=== PATIENT | female | born 1960 | race Caucasian/White ===

== ENCOUNTER 2017-03-31 11:01 | Emergency (ER) | payer OTHER ==
[2017-03-31] MEDS ORDERED: ACETAMINOPHEN 325 MG TABLET PO ONE (11:42)
--- OUTSIDE RECORDS SUMMARY | 2017-03-31 11:42 | XMS REPORT | Continuity of Care Document ---
:1960 Author Organization [facility] ([facility]) Address [address] [place] [address] Phone [phone] Care Team Providers Name Role Phone Claudia Benjamin Primary Care Provider [phone] Source Comments This disclosure is being made pursuant to the Care Everywhere program, applicable federal and state laws, and may not contain all informaitonavailable regarding this patient.[facility] ([facility]) Active Allergies and Adverse Reactions No Known Allergies Current Medications Prescription Sig. Disp. Refills Start Date End Date Status gabapentin 300 mg tablet Take 900 mg by Active mouth 3 times daily. CALCIUM CARBONATE/VITAMIN Take 1 Tab by mouth Active D3 (CALCIUM 600 + D,3, daily. PO) multivitamin tablet Take 1 Tab by mouth Active daily. metFORMIN 1,000 mg tablet Take 1,000 mg by Active mouth 2 times daily with meals. meloxicam 15 mg tablet Take 15 mg by mouth Active daily. lisinopril 20 mg tablet Take 20 mg by mouth Active daily. pioglitazone 15 mg tablet Take 15 mg by mouth Active daily. escitalopram (LEXAPRO) 20 Take 20 mg by mouth Active mg tablet daily. solifenacin (VESICARE) 5 Take 5 mg by mouth Active mg tablet daily. levothyroxine 50 mcg Take 50 mcg by Active tablet mouth every morning before breakfast. atorvastatin 20 mg tablet Take 20 mg by mouth Active every evening. Ferrous Sulfate 324 mg Take 1 Tab by mouth Active (65 mg iron) TbEC 2 times daily. 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 Osteoarthrosis, unspecified whether generalized or localized, unspecified site Immunizations Name Dates Previously Given Next Due Hepatitis B, unspecified 04/01/1999 Influenza, unspecified 01/25/2013 Td, adult unspecified 04/01/1999 Social History Tobacco Use Types Packs/Day Years Used Date Former Smoker Cigarettes 1 Quit: 02/03/1998 Last Filed Vital Signs Vital Sign Reading Time Taken Blood Pressure 118/67 03/06/2013 9:13 AM CDT Pulse 81 03/06/2013 9:13 AM CDT Temperature 36.4 C (97.5 F) 03/06/2013 9:13 AM CDT Respiratory Rate 18 03/12/2006 10:22 AM CDT Height 1.66 m (5' 5.35") 03/06/2013 9:13 AM CDT Weight 110 kg (242 lb 8.1 oz) 03/06/2013 9:13 AM CDT Body Mass Index 39.92 03/06/2013 9:13 AM CDT Oxygen Saturation - - Plan of Care Health Maintenance Due Date Last Done Comments HCV Screening 1960 Tdap Vaccine 1972 MMR Vaccine 1979 Pneumococcal Vaccine (1 of 1 1980 - PPSV23) Hepatitis B Vaccine (2 of 3 04/29/1999 04/01/1999 - Primary Series) Mammogram 08/28/2003 08/28/2002, Additional history exists 07/19/2002, 10/13/1999 Cervical Cancer Screening 12/12/2006 12/12/2003, Additional history exists 06/28/2002, 11/25/2000 Lipid Disorder Screening 07/19/2007 07/19/2002 Td Vaccine 04/01/2009 04/01/1999 Colonoscopy 2011 Influenza Vaccine: Seasonal 06/15/2016 01/25/2013 (#1) Results from Last 3 Months Not on file
[2017-03-31 12:05] LABS: Hematocrit 34.2 % (37.0-47.0); Mean Cell Volume 90.5 fl (78-100); Mean Corpuscular Hemoglobin 29.1 pg (27-31); Mean Corpuscular Hgb Conc 32.2 g/dl (32-36); Neutrophil # 3.2 K/mm3 (1.3-6.0); Neutrophil % 67.3 % (42-75.0); Platelet Count 148 K/mm3 (150-450); Red Blood Count 3.78 M/mm3 (4.2-5.4); Red Cell Distribution Width 13.7 % (11.5-14.0); White Blood Count 4.7 K/mm3 (4.0-10.5)
[2017-03-31] MEDS ORDERED: ACETAMINOPHEN 325 MG TABLET ONE ×2 (12:12→12:14)
[2017-03-31 12:21] LABS: Albumin * 3.5 gm/dl (3.4-5.0); Anion Gap 12.2 mmol/L (6.8-13.8); BUN/Creatinine Ratio 18.1 (9.0-21.6); Bilirubin, Total 0.2 mg/dL (0.0-1.1); Ca. Corrected For Albumin 9.6 mg/dL (8.4-10.2); Calcium * 9.5 mg/dL (7.9-10.9); Carbon Dioxide 29.9 mmol/L (24-32.6); Potassium 4.1 mmol/L (3.4-4.6); Total Protein 7.2 gm/dL (6.2-8.2)
--- NOTE | 2017-03-31 13:18 | ERNOTE ---
Dizziness ER Record Date of Service: 03/31/17 Presenting Symptoms: dizziness Time Seen by Provider: 03/31/17 11:34 Source: patient Exam Limitations: no limitations Immunizations: IMMUNIZATION HX Immunizations Up to Date Yes History of Influenza Vaccine Yes Hx Pneumococcal Vaccination No Allergies/Adverse Reactions: Allergies Allergy/AdvReac Type Severity Reaction Status Date / Time No Known Allergies Allergy Verified 03/31/17 11:14 Home Medications: HOME MEDICATIONS Albuterol Sulfate [Ventolin Hfa] 2 inh IH Q6H 01/26/13 [Last Taken Unknown] Atorvastatin Calcium [Lipitor] 20 mg PO DAILY 01/26/13 [Last Taken Unknown] Budesonide/Formoterol Fumarate [Symbicort 160-4.5 Mcg Inhaler] 2 inh IH BID [Last Taken Unknown] Calcium/Soyb Xt/Flax/B.cohosh [Black Fpxwvh-Fyrwldvy-Flu Cplt] 1 each PO TID [Last Taken Unknown] Cimetidine 400 mg PO HS 01/26/13 [Last Taken Unknown] Cranberry Fruit Concentrate [Cranberry] 500 mg PO DAILY 01/26/13 [Last Taken Unknown] Cyclobenzaprine HCl [Flexeril] 10 mg PO TID 01/26/13 [Last Taken Unknown] Escitalopram Oxalate [Lexapro] 20 mg PO DAILY 01/26/13 [Last Taken Unknown] Ferrous Fumarate [Iron] 65 mg PO DAILY 01/26/13 [Last Taken Unknown] Gabapentin [Neurontin] 600 mg PO TID 01/26/13 [Last Taken Unknown] Levothyroxine Sodium [Synthroid] 50 mcg PO DAILY 01/26/13 [Last Taken Unknown] Lisinopril [Zestril] 20 mg PO DAILY 01/26/13 [Last Taken Unknown] Multivit,Calc,Mins/Iron/Folic [Women's Daily Caplet] 1 each PO DAILY 01/26/13 [ Last Taken Unknown] Multivits Min/Iron/FA/Herb#186 [Hair, Skin and Nails Caplet] 1 each PO TID 01/26 [Last Taken Unknown] Pioglitazone HCl [Actos] 15 mg PO DAILY 01/26/13 [Last Taken Unknown] Solifenacin Succinate [Vesicare] 5 mg PO DAILY 01/26/13 [Last Taken Unknown] metFORMIN HCL [Metformin HCl ER] 1,000 mg PO BID 01/26/13 [Last Taken Unknown] traZODone HCL [Desyrel] 150 mg PO HS 01/26/13 [Last Taken Unknown] Albuterol Sulfate 2.5 mg IH QID PRN 08/27/15 [Last Taken Unknown] Ibuprofen [Motrin] 400 mg PO TID PRN #30 tablet 10/17/16 [Last Taken Unknown] - History of Present Illness Narrative: patient states that she was dizzy yesterday and today. denies any LOC Date (Duration): 03/31/17 Timing and Duration: gradual onset Noted on awakening:: No Severity: max: mild Severity: currently: mild Associated Symptoms: Present: light headedness. Absent: hearing loss, ringing/ roaring in ear, ear pain, nausea, vomiting, headache, weakness, numbness, sweating, sense of confusion Sense of movement: Present: vague Fainted/near fainted while:: Present: standing Decreased ability to stand/walk:: Present: walks w/o assistance Usually:: Present: walks w/o assistance Modifying Factors - (Improves): Reports: nothing Modifying Factors - (Worsens): Reports: nothing Review of Systems - Review of Systems Constitutional: Present: See HPI EYE: Present: no symptoms reported ENT: Present: no symptoms reported Respiratory: Present: no symptoms reported Cardiology: Present: no symptoms reported Gastrointestinal/Abdominal: Present: no symptoms reported Genitourinary: Present: no symptoms reported Musculoskeletal: Present: no symptoms reported Skin: Present: no symptoms reported Neurological: Present: See HPI Endocrine: Present: no symptoms reported Hematologic/Lymphatic: Present: no symptoms reported Psych: Present: no symptoms reported All Other Systems: All systems neg except as marked - Patient's Past Medical History Patient History - Medical: Diabetes Type 2, Hypothyroidism, Osteoarthritis Patient History - Cardiac/Respiratory: Asthma, Bronchitis Patient History - Cancer: No Hx of Cancer Patient History - Surgical Procedures: Cholecystectomy, Hysterectomy Patient History - Other: None LMP (females 10-50): hysterectomy - Family History Father Family History - Medical: Mother Family History - Medical: , Diabetes Type 2 - Social History Living Situations: home Psych History: Hx of Anxiety, Hx of Depression Smoking Status: Former smoker Alcohol Use: none Drug Use: none - Immunizations Immunizations Up to Date: Yes Hx Pneumococcal Vaccination: No History of Influenza Vaccine: Yes Physical Exam - Physical Exam Narrative: fluid behind TM, boggy nasal turbines. Bilateral lower lobes auscultated and decreased breath sounds heard. Patient denied SOB General Appearance: Present: wd/wn, alert, no apparent distress Eye Exam: Normal inspection: bilateral Ears, Nose, Throat: Present: normal ENT inspection, abnormal TM (R), abnormal TM (L), normal pharynx. Absent: nasal congestion, sinus pain/drainage Neck: Present: normal inspection, nontender, full range of motion, limited range of motion. Absent: lymphadenopathy (R), lymphadenopathy (L) Respiratory: Present: no respiratory distress, normal breath sounds, no accessory muscle use, chest nontender, decreased breath sounds - BLL Cardiovascular/Chest: Present: regular rate, rhythm, no murmur, normal peripheral pulses Peripheral Pulses: N=norm/S=strong/W=weak/B=bound/A=absent: Radial (R): Normal, Radial (L): Normal, Dorsalis-pedis (R): Normal, Dorsalis-pedis (L): Normal Gastrointestinal/Abdominal: Present: normal bowel sounds, nontender, soft Back Exam: Present: normal inspection, normal range of motion Extremity Exam: Present: normal inspection, normal range of motion, extremity edema - trace BLE Neurological Exam: Present: alert, oriented, normal mood/affect, no motor/ sensory deficits Skin Exam: Present: normal color, warm/dry Lymphatic Exam: Present: no adenopathy ED Progress - Results and Orders Patient's Lab Results:: I have reviewed the patient's lab results. Results and Orders: patient tested positive for opiates and does not have a prescription. patient states she takes her husbands. - Vital Signs Patient's Vital Signs:: I have reviewed the patient's vital signs. Vital Signs: Vital Signs 03/31/17 03/31/17 03/31/17 11:06 12:07 12:45 Temperature 37.5 C Pulse Rate 65 69 62 Respiratory 14 16 Rate Blood Pressure 123/84 128/76 O2 Sat by Pulse 99 95 Oximetry - EKG EKG: NSR EKG read: Reviewed by me EKG Comments: interp by ED Attending - X-Ray X-Ray #1 X-Ray: chest Interpretation: Reviewed by me X-ray Comments: COMPARISONS: None Available FINDINGS: Chest PA Lateral * Hyperinflated lung volumes. No consolidation or mass. Central bronchial wall prominence noted. No pneumothorax or pleural fluid collections. Cardiac size within normal limits. Atherosclerotic vascular calcification seen projecting over the aorta. Trachea is in normal position. Bones show degenerative changes of the spine. IMPRESSION: Findings compatible with acute or chronic bronchitis versus reactive airways disease. Also consider COPD/emphysema, if the patient has history of smoking. Electronically signed by Leah Drew M.D.. - CT/Ultrasound CT/Ultrasound Narrative: FINDINGS: CT Head W/O Contrast *: Age-related cortical atrophy and periventricular white matter chronic ischemic changes are present. Intracranial atherosclerotic calcifications noted. No acute intracranial hemorrhage. No midline shift or herniation. Wilkins and white matter differentiation is grossly intact. No obvious soft tissue swelling or scalp hematoma noted. Skull grossly intact, without signs of depressed skull fracture. Visualized portions of the paranasal sinuses are clear. Mastoid air cells are grossly clear. IMPRESSION: No acute intracranial hemorrhage or mass effect. Electronically signed by Leah Drew M.D.. - Progress/Reassessment Chief Complaint: Dizziness Progress:: Improved Plan - Plan Plan: Patient has a history of asthma and is an environmental where her continues to smoke around her. Patient has a cough that is nonproductive and states she has not been using her inhalers and breathing treatments at home. She was encouraged to ask her to smoke outside and for her to not be around secondhand smoke. Patient was also urged to take her inhalers and treatments as needed. Patient stated she was taking her 's narcotics for the last few days and has noticed she has been more dizzy. Patient informed of her blood pressure fluctuation from lying sitting and standing that it could be related to taking medications she is not prescribed. This provider did speak with her provider and informed him of her positive drug screen. During my initial examination patient states the reason she was here was because she was dizzy over the last few days. Upon reassessing the patient patient had a second story about why she was here and had no symptoms. Patient then told radiology department that she had chest pain with left arm radiation, when this was brought to the emergency room provider's attention I again reassessed the patient and she denies chest pain or any left arm involvement. Patient then stated that she has been dizzy for years reason she was here now was because her psychiatric doctor told her she needed to come here for evaluation and an echocardiogram. After speaking with her psychiatric doctor's nurse, they informed me that the patient told them that she had 6 syncopal episodes at home yesterday and she had a cardiac history and that's why she was not feeling well and they instructed her to come to the emergency room. Patient states that she did not tell her psychiatrist this and then again changed her story as to why she is here. States the reason she is here is because she wants an echocardiogram because her mother has a history of heart disease. the only positive sign on patients exam was small air fluid level in both TM and boggy nasal turbines, clear nasal drainage. patient was treated for seasonal allergies. During patients stay she developed a limp while walking to and from the bathroom. patient stated that her ankle hurt but it was better now. Departure Clinical Impression: Seasonal allergies Qualifiers: Allergic rhinitis trigger: unspecified Qualified Code(s): J30.2 - Other seasonal allergic rhinitis - Departure Disposition: Home Follow Up Needed Condition: Stable Instructions: Allergies, Tfwg-hn-Czgi Additional Instructions: Continue any previous home medications as directed. you may take over-the- counter Flonase to help with her allergies. Return to the emergency room if symptoms become worse and they're unable to be controlled with her medications at home. Continue with her follow-up appointments with your physicians. Avoid taking medications that are not yours. Referrals: Claudia Benjamin MD [Primary Care Provider] -
[2017-03-31 13:36] LABS: Urine Bilirubin Negative (NEGATIVE); Urine Blood Negative /ul (NEGATIVE); Urine Ketone Negative (NEGATIVE); Urine Nitrite Negative (NEGATIVE); Urine Protein Negative (NEGATIVE); Urine Urobilinogen Normal (NORMAL); Urine pH 7.5 pH (5.0-7.0)
[2017-03-31 13:36] LABS: BNP * 146 pg/mL (5-205); Troponin I Less than 0.017 ng/ml (0.00-0.10)
[2017-03-31 13:42] LABS: Urine Appearance Clear; Urine Bacteria None Seen; Urine Color Yellow; Urine RBC None Seen /hpf (0-5); Urine WBC None Seen /hpf (0-5)
[2017-03-31 13:52] LABS: Cocaine Ur Negative (NEGATIVE); Urine Barbiturate Negative (NEGATIVE); Urine Benzodiazepines Negative (NEGATIVE); Urine PCP Negative (NEGATIVE); Urine THC Negative (NEGATIVE)
[2017-03-31 13:56] LABS: Urine Opiates Positive (NEGATIVE)
[2017-03-31 14:27] VITALS: BP 123/78
== END 2017-03-31 14:48 | disposition home or self-care (01) ==
LOC: ER 11:01
DX: J30.2 Other seasonal allergic rhinitis (principal); E11.9 Type 2 diabetes mellitus without complications; E03.9 Hypothyroidism, unspecified; F41.9 Anxiety disorder, unspecified; F32.9 Major depressive disorder, single episode, unspecified; J45.909 Unspecified asthma, uncomplicated; Z87.891 Personal history of nicotine dependence

== ENCOUNTER 2017-04-04 16:50 | Observation (INO) | payer OTHER ==
--- OUTSIDE RECORDS SUMMARY | 2017-04-04 17:43 | XMS REPORT | Continuity of Care Document ---
:1960 Author Organization [facility] ([facility]) Address [address] [place] [address] Phone [phone] Care Team Providers Name Role Phone Claudia Benjamin Primary Care Provider [phone] Source Comments This disclosure is being made pursuant to the Care Everywhere program, applicable federal and state laws, and may not contain all informaitonavailable regarding this patient.[facility] ([facility]) Active Allergies and Adverse Reactions [...]
--- NOTE | 2017-04-04 17:56 | ERNOTE ---
Psychological HPI - General Chief Complaint: Drug Overdose Source: Reports: family Exam Limitations: Reports: physical impairment - Immun/Allergies/Home Medications Allergies/Adverse Reactions: Allergies No Known Allergies Allergy (Verified 04/04/17 17:00) Home Medications: HOME MEDICATIONS Albuterol Sulfate [Ventolin Hfa] 2 inh IH Q6H 01/26/13 [Last Taken Unknown] Atorvastatin Calcium [Lipitor] 20 mg PO DAILY 01/26/13 [Last Taken Unknown] Budesonide/Formoterol Fumarate [Symbicort 160-4.5 Mcg Inhaler] 2 inh IH BID [Last Taken Unknown] Calcium/Soyb Xt/Flax/B.cohosh [Black Fvysca-Yfxeafbt-Yco Cplt] 1 each PO TID [Last Taken Unknown] Cimetidine 400 mg PO HS 01/26/13 [Last Taken Unknown] Cranberry Fruit Concentrate [Cranberry] 500 mg PO DAILY 01/26/13 [Last Taken Unknown] Cyclobenzaprine HCl [Flexeril] 10 mg PO TID 01/26/13 [Last Taken Unknown] Escitalopram Oxalate [Lexapro] 20 mg PO DAILY 01/26/13 [Last Taken Unknown] Ferrous Fumarate [Iron] 65 mg PO DAILY 01/26/13 [Last Taken Unknown] Gabapentin [Neurontin] 600 mg PO TID 01/26/13 [Last Taken Unknown] Levothyroxine Sodium [Synthroid] 50 mcg PO DAILY 01/26/13 [Last Taken Unknown] Lisinopril [Zestril] 20 mg PO DAILY 01/26/13 [Last Taken Unknown] Multivit,Calc,Mins/Iron/Folic [Women's Daily Caplet] 1 each PO DAILY 01/26/13 [ Last Taken Unknown] Multivits Min/Iron/FA/Herb#186 [Hair, Skin and Nails Caplet] 1 each PO TID 01/26 [Last Taken Unknown] Pioglitazone HCl [Actos] 15 mg PO DAILY 01/26/13 [Last Taken Unknown] Solifenacin Succinate [Vesicare] 5 mg PO DAILY 01/26/13 [Last Taken Unknown] metFORMIN HCL [Metformin HCl ER] 1,000 mg PO BID 01/26/13 [Last Taken Unknown] traZODone HCL [Desyrel] 150 mg PO HS 01/26/13 [Last Taken Unknown] Albuterol Sulfate 2.5 mg IH QID PRN 08/27/15 [Last Taken Unknown] Ibuprofen [Motrin] 400 mg PO TID PRN #30 tablet 10/17/16 [Last Taken Unknown] - History of Present Illness Narrative: Patient is here for a possible over dose. She refuses information, mumbles an answer to some questions and does not respond to others. Her states that he had 20 vicodin in his medication bottle when he left and when he cam back they were gone, he was only gone about an hour, when he came back his was very sleepy and hard to wake up, so he called the ambulance for transport. Patient was admitted for a drug overdose in 10/2016, which was the first event Time Seen by Provider: 04/04/17 17:34 Arrived by: Reports: ambulance Review of Systems - Narrative Narrative: unable to obtain - Patient's Past Medical History Patient History - Medical: Anxiety, Diabetes Type 2, Depression, Hypothyroidism , Osteoarthritis Patient History - Cardiac/Respiratory: Asthma, Bronchitis Patient History - Cancer: No Hx of Cancer Patient History - Surgical Procedures: Cholecystectomy, Hysterectomy Patient History - Other: None - Family History Father Family History - Medical: Mother Family History - Medical: , Diabetes Type 2 - Social History Living Situations: home Psych History: Hx of Anxiety, Hx of Depression Alcohol Use: none Drug Use: none - Immunizations Immunizations Up to Date: Yes Hx Pneumococcal Vaccination: No History of Influenza Vaccine: Yes Physical Exam - Physical Exam General Appearance: Present: wd/wn, no apparent distress, lethargic, obese, other - patient lethargic, only answering select questions, when asked to tranfer from cot to bed though patient is able to get up with minimal assistance , get into bed and push herself up, then becomes lethargic again Eye Exam: Normal inspection: bilateral, PERRL: bilateral Ears, Nose, Throat: Present: normal pharynx, dry mucous membranes Neck: Present: nontender, supple Respiratory: Present: no respiratory distress, normal breath sounds, no accessory muscle use, lungs clear Cardiovascular/Chest: Present: regular rate, rhythm, no murmur Gastrointestinal/Abdominal: Present: normal bowel sounds, nontender, nondistended, soft Neurological Exam: Present: other - transfers with minimal help, uses all extremities, no obvious deficit Skin Exam: Present: normal color, warm/dry ED Progress - Results and Orders Patient's Lab Results:: I have reviewed the patient's lab results. - Vital Signs Patient's Vital Signs:: I have reviewed the patient's vital signs. Vital Signs: Vital Signs 04/04/17 04/04/17 16:55 17:13 Temperature 37.5 C Pulse Rate 78 78 Respiratory 13 Rate Blood Pressure 127/99 O2 Sat by Pulse 94 Oximetry - EKG EKG: NSR, other - no acute changes EKG read: Interp. by me - Progress/Reassessment Chief Complaint: Drug Overdose Progress Note-Subjective: 04/04/17 19:10 patient very lethargic, O2 saturations dropping to 80's, rise and patient wakes up with stimulation 04/04/17 19:21 patient alert and talking after narcan 1mg IV, states that she took her husbands vicodin as she was in pain, also took half a bottle of ibuprofen and half a bottle of flexeril as she just wanted to go to sleep, denies any current suicidal ideation 04/04/17 19:40 discussed with Lisette Dillon ([employer]) okay to admit to the floor for observation per poison controll will order repeat tylenol level Departure Clinical Impression: Lethargy Overdose Qualifiers: Encounter type: initial encounter Injury intent: undetermined intent Qualified Code(s): T50.904A - Poisoning by unspecified drugs, medicaments and biological substances, undetermined, initial encounter - Departure Disposition: [facility] Condition: Fair
[2017-04-04 18:31] LABS: ALT 17 U/L (19-67); AST 15 U/L (0-48); Acetaminophen * 20.2 mcg/mL (10.0-30.0); Albumin * 3.5 gm/dl (3.4-5.0); Alkaline Phosphatase * 69 U/L (50-170); Anion Gap 11.3 mmol/L (6.8-13.8); BUN/Creatinine Ratio 13.2 (9.0-21.6); Bilirubin, Total 0.2 mg/dL (0.0-1.1); Blood Urea Nitrogen 12 mg/dL (3-23); Ca. Corrected For Albumin 8.4 mg/dL (8.4-10.2); Calcium * 8.3 mg/dL (7.9-10.9); Carbon Dioxide 31.2 mmol/L (24-32.6); Chloride 107 mmol/L (97-106); Glucose * 98 mg/dL (70-110); Potassium 3.5 mmol/L (3.4-4.6); Salicylate Less than 2.8 mg/dL (2.8-20.0); Sodium 146 mmol/L (132-142); TSH * 2.367 uIU/mL (0.358-3.74)
[2017-04-04 18:32] LABS: Hematocrit 32.3 % (37.0-47.0); Hemoglobin 10.3 gm/dL (12.5-16.0); Mean Cell Volume 89.7 fl (78-100); Mean Corpuscular Hemoglobin 28.6 pg (27-31); Mean Corpuscular Hgb Conc 31.9 g/dl (32-36); Platelet Count 162 K/mm3 (150-450); Red Cell Distribution Width 13.3 % (11.5-14.0); White Blood Count 5.2 K/mm3 (4.0-10.5)
[2017-04-04 18:59] LABS: Cocaine Ur Negative (NEGATIVE); Urine Barbiturate Negative (NEGATIVE); Urine Benzodiazepines Negative (NEGATIVE); Urine PCP Negative (NEGATIVE); Urine THC Negative (NEGATIVE)
[2017-04-04 19:02] LABS: Urine Opiates Positive (NEGATIVE)
[2017-04-04] MEDS ORDERED: NALOXONE HCL 1 MG/1 ML SYRG ONE (19:07)
[2017-04-04] MEDS ORDERED: NALOXONE HCL 1 MG/1 ML SYRG IV ONE (19:09)
[2017-04-04] MEDS ORDERED: NORMAL SALINE 1,000 ML IV ONE (19:13)
[2017-04-04 19:26] LABS: Urine Appearance Clear; Urine Bilirubin Negative (NEGATIVE); Urine Blood 250 /ul (NEGATIVE); Urine Color Yellow; Urine Ketone Negative (NEGATIVE)
[2017-04-04 19:27] LABS: Urine Nitrite Negative (NEGATIVE); Urine Protein Negative (NEGATIVE); Urine Urobilinogen Normal (NORMAL); Urine pH 5.5 pH (5.0-7.0)
[2017-04-04 19:28] LABS: Urine Bacteria None Seen; Urine RBC 0-5 /hpf (0-5); Urine WBC 0-5 /hpf (0-5)
[2017-04-04 19:29] LABS: Urine Renal Epithelial Cell Moderate - 2+ /hpf
[2017-04-04 19:32] LABS: Urine Transitional Epi Cells Few - 1+ /hpf
[2017-04-04] MEDS ORDERED: NALOXONE HCL 0.4 MG/ML VIAL IV PRN (19:58)
--- OUTSIDE RECORDS SUMMARY | 2017-04-04 19:58 | XMS REPORT | Continuity of Care Document ---
:1960 Author Organization [facility] ([facility]) Address [address] [place] [address] Phone [phone] Care Team Providers Name Role Phone Claudia Benjamin Primary Care Provider [phone] Source Comments This disclosure is being made pursuant to the Care Everywhere program, applicable federal and state laws, and may not contain all informaitonavailable regarding this patient.[facility] ([facility]) Active Allergies and Adverse Reactions [...]
[2017-04-04 20:01] LABS: Total Cells Counted 100
[2017-04-04 20:31] LABS: Band 1 % (0-2.0); Eosinophil 6 % (0-3); Lymphocyte 24 % (20-51); Monocyte 6 % (0-9); Neutrophil 63 % (42-75); Neutrophil # 3.3 K/mm3 (1.3-6.0); Platelet Estimate Normal (NORMAL); RBC Morphology Normal (NORMAL)
[2017-04-04 20:39] LABS: Mean Platelet Volume 10.7 fl (6.0-9.5)
--- NOTE | 2017-04-04 21:23 | HP ---
<Lisette Dillon - Last Filed: 04/05/17 05:13> Chief Complaint - Chief Complaint Date of Service: 04/04/17 Time of Service: 20:55 Chief Complaint: 'Intentional Drug Overdose'. Source of HPI- Pt; unreliable, Pt 's son Mikel & Oscar & pt's spouse Bertram. ER provider report. History of Present Illness: Mrs. Larios is a 56-yr-old WF pt of Dr. Claudia Benjamin with a PMH of: Anemia, Anxiety Disorder, Asthma, Depression, DM II, GERD, HLD, HTN, & Hypothyroidism. Pt appears drowsy from an apparent overdose on narcotics and therefore, history was obtained from family members ( 2 sons- Mikel & Oscar and Spouse- Bertram). Bertram states that pt's brother called him to inform that she had called and expressed suicidal thoughts. Apparently pt stated to his brother that "she was ready to meet Bill." Spouse went home to check on her and found her speech to be slurry and also noticed that 'his bottle of Vicodin tablets were all gone.' He states that there had been roughly 20 pills. They called the EMS and she was brought to the [facility] ER. Pt denies being suicidal, but states that she took the pills as she hurts all over. Sons admit that the pt has an addiction problem to narcotics and she will take her own including her 's medication. They report that she is always sleeping during the day. They have advised the Father to store his narcotic medications away from her but he declines. Bertram says that he cannot read, and therefore relies on her to administer him his medications. Bertram states that pt has been furious and upset since Wednesday over not being able to take a picture with their grandson during graduation. They report that pt has had prior suicide attempt with an intentional overdose medication several months ago. Pt was hospitalized in 10/17/16 for intentional drug overdose on vicodin 's, flexeril & Gabapentin. She was evaluated by Psychiatry (Dr. Means). At the ED today, her urine toxicology screen was positive for opiates and she was in an obtunded state. She received 1 dose of Narcan and became more alert and begun talking. V.S remained stable and was able to maintain her airway. She will be admitted under observation status for supportive cares and for psychiatry evaluation in am. - Patient's Past Medical History Patient History - Medical: Anemia, Anxiety, Diabetes Type 2, Depression, Hypothyroidism, Osteoarthritis Patient History - Cardiac/Respiratory: Asthma, Bronchitis Patient History - Cancer: No Hx of Cancer Patient History - Surgical Procedures: Cholecystectomy, Hysterectomy Patient History - Other: None - Family History Father Family History - Medical: Mother Family History - Medical: , Diabetes Type 2 - Social History Living Situations: home Psych History: Hx of Anxiety, Hx of Depression Alcohol Use: none Drug Use: none - Immunizations Immunizations Up to Date: Yes Hx Pneumococcal Vaccination: No History of Influenza Vaccine: Yes Review Of Systems (GEN) - Review of Systems Additional Comments: ROS unobtainable due to cognitive impairment. Immunizations: IMMUNIZATION HX Immunizations Up to Date Yes History of Influenza Vaccine Yes Hx Pneumococcal Vaccination No Allergies/Adverse Reactions: Allergies Allergy/AdvReac Type Severity Reaction Status Date / Time No Known Allergies Allergy Verified 04/04/17 17:00 Home Medications: HOME MEDICATIONS Atorvastatin Calcium [Lipitor] 20 mg PO DAILY 01/26/13 [Last Taken Unknown] Budesonide/Formoterol Fumarate [Symbicort 160-4.5 Mcg Inhaler] 2 inh IH BID [Last Taken Unknown] Cyclobenzaprine HCl [Flexeril] 10 mg PO TID 01/26/13 [Last Taken Unknown] Escitalopram Oxalate [Lexapro] 20 mg PO DAILY 01/26/13 [Last Taken Unknown] Ferrous Fumarate [Iron] 65 mg PO TID 01/26/13 [Last Taken Unknown] Levothyroxine Sodium [Synthroid] 100 mcg PO DAILY 01/26/13 [Last Taken Unknown] Lisinopril [Zestril] 20 mg PO DAILY 01/26/13 [Last Taken Unknown] Multivit,Calc,Mins/Iron/Folic [Women's Daily Caplet] 1 each PO DAILY 01/26/13 [ Last Taken Unknown] Pioglitazone HCl [Actos] 15 mg PO DAILY 01/26/13 [Last Taken Unknown] Solifenacin Succinate [Vesicare] 5 mg PO DAILY 01/26/13 [Last Taken Unknown] metFORMIN HCL [Metformin HCl ER] 1,000 mg PO BID 01/26/13 [Last Taken Unknown] Albuterol Sulfate [Albuterol Sulfate 2.5 MG/3 ML] 2.5 mg IH QID PRN 04/04/17 [ Last Taken Unknown] Albuterol Sulfate [Ventolin HFA] 2 puff IH Q6H 04/04/17 [Last Taken Unknown] Calcium Carbonate/Vitamin D3 [Calcium 600 + D3 Softgel] 1 each PO BID 04/04/17 [ Last Taken Unknown] Gabapentin 600 mg PO TID 04/04/17 [Last Taken Unknown] Ibuprofen [Motrin] 800 mg PO TID PRN 04/04/17 [Last Taken Unknown] traZODone HCL [Trazodone HCl] 150 mg PO HS 04/04/17 [Last Taken Unknown] Exam - Exam Vital Signs: Vital Signs - Last Taken Temp 36.1 C L 04/04/17 20:15 Pulse 66 04/04/17 20:15 Resp 14 04/04/17 20:15 BP 146/91 04/04/17 20:15 Pulse Ox 100 04/04/17 20:15 Constitutional: Present: Alert, Oriented x3, Cooperative - Drowsy, Other ENT Exam: Present: normal ENT inspection, hearing grossly normal, dry mucous membranes Eye Exam: bilateral eye: normal inspection, PERRL Neck: Present: full range of motion, supple, normal inspection Back Exam: Present: no CVA tenderness Breasts: Present: Exam deferred Respiratory: Present: lungs clear, normal breath sounds, no accessory muscle use Cardiovascular/Chest: Present: normal peripheral pulses, regular rate, rhythm, no chest tenderness, no edema Abdomen: Present: Normal bowel sounds, soft, nontender /Rectal: Present: Exam deferred Extremity: Present: non-tender, normal inspection, no pedal edema Skin Exam: Present: warm/dry, no cyanosis Lymphatic: Present: no adenopathy Neurologic: Present: no motor/sensory deficits, alert, oriented x 3, depressed affect, dizzy/light-headedness. Absent: facial droop Appearance: Present: impaired insight Eye contact: Present: cooperative, decreased rate of speech Thoughts: Present: no apparent hallucination Diagnostic Studies: Laboratory Results WBC 5.2 K/mm3 (4.0-10.5) 04/04/17 17:55 RBC 3.60 M/mm3 (4.2-5.4) L 04/04/17 17:55 Hgb 10.3 gm/dL (12.5-16.0) L 04/04/17 17:55 Hct 32.3 % (37.0-47.0) L 04/04/17 17:55 MCV 89.7 fl (78-100) 04/04/17 17:55 MCH 28.6 pg (27-31) 04/04/17 17:55 MCHC 31.9 g/dl (32-36) L 04/04/17 17:55 RDW 13.3 % (11.5-14.0) 04/04/17 17:55 Plt Count 162 K/mm3 (150-450) 04/04/17 17:55 MPV 10.7 fl (6.0-9.5) H 04/04/17 17:55 Immature Gran % (Auto) TRUCK SERVICE MANAGER 04/04/17 17:55 Immature Gran # (Auto) TRUCK SERVICE MANAGER 04/04/17 17:55 Neutrophils % (Manual) 63 % (42-75) 04/04/17 17:55 Band Neuts % (Manual) 1 % (0-2.0) 04/04/17 17:55 Lymphocytes % TRUCK SERVICE MANAGER 04/04/17 17:55 Lymphocytes % (Manual) 24 % (20-51) 04/04/17 17:55 Monocytes % TRUCK SERVICE MANAGER 04/04/17 17:55 Monocytes % (Manual) 6 % (0-9) 04/04/17 17:55 Eosinophils % TRUCK SERVICE MANAGER 04/04/17 17:55 Eosinophils % (Manual) 6 % (0-3) H 04/04/17 17:55 Basophils % TRUCK SERVICE MANAGER 04/04/17 17:55 Neutrophils # TRUCK SERVICE MANAGER 04/04/17 17:55 Neutrophils # (Manual) 3.3 K/mm3 (1.3-6.0) 04/04/17 17:55 Lymphocytes # TRUCK SERVICE MANAGER 04/04/17 17:55 Lymphocytes # (Manual) 1.2 k/mm3 (1.5-3.5) L 04/04/17 17:55 Monocytes # TRUCK SERVICE MANAGER 04/04/17 17:55 Monocytes # (Manual) 0.3 k/mm3 (0.0-1.0) 04/04/17 17:55 Eosinophils # TRUCK SERVICE MANAGER 04/04/17 17:55 Eosinophils # (Manual) 0.3 k/mm3 (0.0-0.7) 04/04/17 17:55 Absolute Basophils TRUCK SERVICE MANAGER 04/04/17 17:55 Platelet Estimate Normal (NORMAL) 04/04/17 17:55 RBC Morphology Normal (NORMAL) 04/04/17 17:55 Sodium 146 mmol/L (132-142) H 04/04/17 17:55 Plasma Sodium 146 mmol/L (130-142) H 04/04/17 17:55 Potassium 3.5 mmol/L (3.4-4.6) 04/04/17 17:55 Chloride 107 mmol/L (97-106) H 04/04/17 17:55 Carbon Dioxide 31.2 mmol/L (24-32.6) 04/04/17 17:55 Anion Gap 11.3 mmol/L (6.8-13.8) 04/04/17 17:55 BUN 12 mg/dL (3-23) 04/04/17 17:55 Creatinine 0.91 mg/dL (0.4-1.4) 04/04/17 17:55 Est GFR (Non-Af Amer) 68 mL/min (60-130) 04/04/17 17:55 BUN/Creatinine Ratio 13.2 (9.0-21.6) 04/04/17 17:55 Random Glucose 98 mg/dL (70-110) 04/04/17 17:55 Calcium 8.3 mg/dL (7.9-10.9) 04/04/17 17:55 Calcium Adj for Albumin 8.4 mg/dL (8.4-10.2) 04/04/17 17:55 Total Bilirubin 0.2 mg/dL (0.0-1.1) 04/04/17 17:55 AST 15 U/L (0-48) 04/04/17 17:55 ALT 17 U/L (19-67) L 04/04/17 17:55 Alkaline Phosphatase 69 U/L (50-170) 04/04/17 17:55 Total Protein 7.0 gm/dL (6.2-8.2) 04/04/17 17:55 Albumin 3.5 gm/dl (3.4-5.0) 04/04/17 17:55 TSH 2.367 uIU/mL (0.358-3.74) 04/04/17 17:55 Urine Color Yellow 04/04/17 18:31 Urine Appearance Clear 04/04/17 18:31 Urine pH 5.5 pH (5.0-7.0) 04/04/17 18:31 Ur Specific [place] 1.030 SP.GR. (1.005-1.010) 04/04/17 18:31 Urine Protein Negative mg/dL (NEGATIVE) 04/04/17 18:31 Urine Glucose (UA) Negative mg/dL (NEGATIVE) 04/04/17 18:31 Urine Ketones Negative mg/dL (NEGATIVE) 04/04/17 18:31 Urine Blood 250 /ul (NEGATIVE) H 04/04/17 18:31 Urine Nitrate Negative (NEGATIVE) 04/04/17 18:31 Urine Bilirubin Negative mg/dl (NEGATIVE) 04/04/17 18:31 Urine Urobilinogen Normal EU/dl (NORMAL) 04/04/17 18:31 Ur Leukocyte Esterase Negative /ul (NEGATIVE) 04/04/17 18:31 Urine RBC 0-5 /hpf (0-5) 04/04/17 18:31 Urine WBC 0-5 /hpf (0-5) 04/04/17 18:31 Ur Epithelial Cells None seen /hpf (0-5) 04/04/17 18:31 Ur Transition Epith Cell Few - 1+ /hpf (NONE) H 04/04/17 18:31 Ur Renal Epithelial Cell Moderate - 2+ /hpf (NONE) H 04/04/17 18:31 Urine Bacteria None seen (NONE) 04/04/17 18:31 Urine Culture Comments No culture indicated 04/04/17 18:31 Salicylates Less than 2.8 mg/dL (2.8-20.0) L 04/04/17 17:55 Urine Opiates Screen Positive (NEGATIVE) H 04/04/17 18:31 Acetaminophen 20.2 mcg/mL (10.0-30.0) 04/04/17 17:55 Barbiturate Screen Negative (NEGATIVE) 04/04/17 18:31 Ur Phencyclidine Scrn Negative (NEGATIVE) 04/04/17 18:31 Urine Amphetamine Negative (NEGATIVE) 04/04/17 18:31 U Benzodiazepines Scrn Negative (NEGATIVE) 04/04/17 18:31 Urine Cocaine Screen Negative (NEGATIVE) 04/04/17 18:31 Urine Marijuana (THC) Negative (NEGATIVE) 04/04/17 18:31 Ethyl Alcohol Less than 3.0 mg/dL (0.0-10.0) 04/04/17 17:55 Assessment/Plan - Assessment/Plan (1) Intentional drug overdose Assessment: Toxicology screening narrowed etiology of overdose to low levels of APAP Poisoning & Opiates. She received Narcan at the ED which made her more alert. Even through she may have been in an obtunded state of consciousness initially, she was able to protect her own airway & V.S remained stable. The EKG, showed NSR. Pt will be placed under observation status for supportive cares with IVF, cardiac monitoring and will be placed under direct 1:1 staff supervision. Will call Dr. Means (psychiatry) in am for evaluation of the pt. Problem: Acute (2) Anxiety and depression Problem: Chronic (3) Diabetes type 2, controlled Problem: Chronic (4) GERD (gastroesophageal reflux disease) Problem: Chronic (5) HLD (hyperlipidemia) Problem: Chronic (6) HTN (hypertension) Problem: Chronic QualifierTitle: Hypertension type: essential hypertension Qualified Code( s): I10 - Essential (primary) hypertension <Adebayo Goodson - Last Filed: 04/05/17 13:09> Immunizations: IMMUNIZATION HX Immunizations Up to Date Yes History of Influenza Vaccine Yes Hx Pneumococcal Vaccination No Exam - Exam Vital Signs: Vital Signs - Last Taken Temp 36.8 C 04/05/17 06:15 Pulse 79 04/05/17 09:00 Resp 12 04/05/17 06:15 BP 124/76 04/05/17 08:04 Pulse Ox 100 04/05/17 06:15 Diagnostic Studies: Abnormal Lab Results 04/05/17 Range/Units 07:05 Sodium 145 H (132-142) mmol/L Plasma Sodium 145 H (130-142) mmol/L Chloride 109 H (97-106) mmol/L Laboratory Results WBC 5.2 K/mm3 (4.0-10.5) 04/04/17 17:55 RBC 3.60 M/mm3 (4.2-5.4) L 04/04/17 17:55 Hgb 10.3 gm/dL (12.5-16.0) L 04/04/17 17:55 Hct 32.3 % (37.0-47.0) L 04/04/17 17:55 MCV 89.7 fl (78-100) 04/04/17 17:55 MCH 28.6 pg (27-31) 04/04/17 17:55 MCHC 31.9 g/dl (32-36) L 04/04/17 17:55 RDW 13.3 % (11.5-14.0) 04/04/17 17:55 Plt Count 162 K/mm3 (150-450) 04/04/17 17:55 MPV 10.7 fl (6.0-9.5) H 04/04/17 17:55 Immature Gran % (Auto) TRUCK SERVICE MANAGER 04/04/17 17:55 Immature Gran # (Auto) TRUCK SERVICE MANAGER 04/04/17 17:55 Neutrophils % (Manual) 63 % (42-75) 04/04/17 17:55 Band Neuts % (Manual) 1 % (0-2.0) 04/04/17 17:55 Lymphocytes % TRUCK SERVICE MANAGER 04/04/17 17:55 Lymphocytes % (Manual) 24 % (20-51) 04/04/17 17:55 Monocytes % TRUCK SERVICE MANAGER 04/04/17 17:55 Monocytes % (Manual) 6 % (0-9) 04/04/17 17:55 Eosinophils % TRUCK SERVICE MANAGER 04/04/17 17:55 Eosinophils % (Manual) 6 % (0-3) H 04/04/17 17:55 Basophils % TRUCK SERVICE MANAGER 04/04/17 17:55 Neutrophils # TRUCK SERVICE MANAGER 04/04/17 17:55 Neutrophils # (Manual) 3.3 K/mm3 (1.3-6.0) 04/04/17 17:55 Lymphocytes # TRUCK SERVICE MANAGER 04/04/17 17:55 Lymphocytes # (Manual) 1.2 k/mm3 (1.5-3.5) L 04/04/17 17:55 Monocytes # TRUCK SERVICE MANAGER 04/04/17 17:55 Monocytes # (Manual) 0.3 k/mm3 (0.0-1.0) 04/04/17 17:55 Eosinophils # TRUCK SERVICE MANAGER 04/04/17 17:55 Eosinophils # (Manual) 0.3 k/mm3 (0.0-0.7) 04/04/17 17:55 Absolute Basophils TRUCK SERVICE MANAGER 04/04/17 17:55 Platelet Estimate Normal (NORMAL) 04/04/17 17:55 RBC Morphology Normal (NORMAL) 04/04/17 17:55 Sodium 145 mmol/L (132-142) H 04/05/17 07:05 Plasma Sodium 145 mmol/L (130-142) H 04/05/17 07:05 Potassium 4.1 mmol/L (3.4-4.6) 04/05/17 07:05 Chloride 109 mmol/L (97-106) H 04/05/17 07:05 Carbon Dioxide 29.3 mmol/L (24-32.6) 04/05/17 07:05 Anion Gap 10.8 mmol/L (6.8-13.8) 04/05/17 07:05 BUN 10 mg/dL (3-23) 04/05/17 07:05 Creatinine 0.76 mg/dL (0.4-1.4) 04/05/17 07:05 Est GFR (Non-Af Amer) 84 mL/min (60-130) D 04/05/17 07:05 BUN/Creatinine Ratio 13.2 (9.0-21.6) 04/05/17 07:05 Random Glucose 107 mg/dL (70-110) 04/05/17 07:05 Calcium 8.3 mg/dL (7.9-10.9) 04/05/17 07:05 Calcium Adj for Albumin 8.4 mg/dL (8.4-10.2) 04/04/17 17:55 Total Bilirubin 0.2 mg/dL (0.0-1.1) 04/04/17 17:55 AST 15 U/L (0-48) 04/04/17 17:55 ALT 17 U/L (19-67) L 04/04/17 17:55 Alkaline Phosphatase 69 U/L (50-170) 04/04/17 17:55 Total Protein 7.0 gm/dL (6.2-8.2) 04/04/17 17:55 Albumin 3.5 gm/dl (3.4-5.0) 04/04/17 17:55 TSH 2.367 uIU/mL (0.358-3.74) 04/04/17 17:55 Urine Color Yellow 04/04/17 18:31 Urine Appearance Clear 04/04/17 18:31 Urine pH 5.5 pH (5.0-7.0) 04/04/17 18:31 Ur Specific [place] 1.030 SP.GR. (1.005-1.010) 04/04/17 18:31 Urine Protein Negative mg/dL (NEGATIVE) 04/04/17 18:31 Urine Glucose (UA) Negative mg/dL (NEGATIVE) 04/04/17 18:31 Urine Ketones Negative mg/dL (NEGATIVE) 04/04/17 18:31 Urine Blood 250 /ul (NEGATIVE) H 04/04/17 18:31 Urine Nitrate Negative (NEGATIVE) 04/04/17 18:31 Urine Bilirubin Negative mg/dl (NEGATIVE) 04/04/17 18:31 Urine Urobilinogen Normal EU/dl (NORMAL) 04/04/17 18:31 Ur Leukocyte Esterase Negative /ul (NEGATIVE) 04/04/17 18:31 Urine RBC 0-5 /hpf (0-5) 04/04/17 18:31 Urine WBC 0-5 /hpf (0-5) 04/04/17 18:31 Ur Epithelial Cells None seen /hpf (0-5) 04/04/17 18:31 Ur Transition Epith Cell Few - 1+ /hpf (NONE) H 04/04/17 18:31 Ur Renal Epithelial Cell Moderate - 2+ /hpf (NONE) H 04/04/17 18:31 Urine Bacteria None seen (NONE) 04/04/17 18:31 Urine Culture Comments No culture indicated 04/04/17 18:31 Salicylates Less than 2.8 mg/dL (2.8-20.0) L 04/04/17 17:55 Urine Opiates Screen Positive (NEGATIVE) H 04/04/17 18:31 Acetaminophen 12.5 mcg/mL (10.0-30.0) 04/04/17 20:30 Barbiturate Screen Negative (NEGATIVE) 04/04/17 18:31 Ur Phencyclidine Scrn Negative (NEGATIVE) 04/04/17 18:31 Urine Amphetamine Negative (NEGATIVE) 04/04/17 18:31 U Benzodiazepines Scrn Negative (NEGATIVE) 04/04/17 18:31 Urine Cocaine Screen Negative (NEGATIVE) 04/04/17 18:31 Urine Marijuana (THC) Negative (NEGATIVE) 04/04/17 18:31 Ethyl Alcohol Less than 3.0 mg/dL (0.0-10.0) 04/04/17 17:55 Assessment/Plan - Narrative Narrative: The issue here is one of her anger at not being included in a graduation picture. Less than 6 months ago, she did something similar. Although she was very drowsy at time of admission, her blood acetaminophen level never became toxic. Her ingestion was therefore more than the therapeutic dose but never in a dangerous range. Our medical plan is to keep her safe in the hospital and await psych consult. I personally directed all of our nurse practitioner hospitalists' care for this patient.
[2017-04-04] MEDS ORDERED: ALBUTEROL SULFATE 2.5 MG/3 ML VIAL.NEB IH PRN (22:12)
[2017-04-04] MEDS ORDERED: IBUPROFEN 800 MG TABLET PO PRN (22:12)
[2017-04-04] MEDS ORDERED: FERROUS FUMARATE 65 MG PO SCH (22:15)
[2017-04-04] MEDS ORDERED: NON-FORMULARY 1 DOSE DOSE (Metformin Hcl [Metformin Hcl Er] 1,000 MG) PO SCH (22:15)
[2017-04-04] MEDS: CALCIUM CARBONATE/VITAMIN D3 1 TAB TABLET PO SCH (22:25)
[2017-04-04] MEDS: ALBUTEROL SULFATE 200 PUFF INHALER IH SCH (22:25)
[2017-04-04] MEDS: NORMAL SALINE 1,000 ML IV PRN (23:59)
[2017-04-05] MEDS: ALBUTEROL SULFATE 200 PUFF INHALER IH SCH (04:17)
[2017-04-05] MEDS ORDERED: NALOXONE HCL 1 MG/1 ML SYRG IV PRN (06:32)
[2017-04-05] MEDS ORDERED: LEVOTHYROXINE SODIUM 50 MCG TABLET PO SCH (07:00)
[2017-04-05] MEDS ORDERED: LEVOTHYROXINE SODIUM 100 MCG TABLET PO SCH (07:00)
[2017-04-05] MEDS ORDERED: ALBUTEROL SULFATE 2.5 MG/3 ML VIAL.NEB IH SCH (07:00)
[2017-04-05 07:17] LABS: Anion Gap 10.8 mmol/L (6.8-13.8); BUN/Creatinine Ratio 13.2 (9.0-21.6); Calcium * 8.3 mg/dL (7.9-10.9); Carbon Dioxide 29.3 mmol/L (24-32.6); Estimated Creat Clear 78.3; Potassium 4.1 mmol/L (3.4-4.6)
[2017-04-05 07:47] VITALS: BP 124/76
[2017-04-05] MEDS: NORMAL SALINE 1,000 ML IV PRN (08:02)
[2017-04-05] MEDS: CALCIUM CARBONATE/VITAMIN D3 1 TAB TABLET PO SCH (08:04)
[2017-04-05] MEDS ORDERED: FLUTICASONE/SALMETEROL 14 PUFF DISK.W.DEV IH SCH (09:00)
[2017-04-05] MEDS ORDERED: PIOGLITAZONE HCL 15 MG TABLET PO SCH (09:00)
[2017-04-05] MEDS ORDERED: SOLIFENACIN SUCCINATE 10 MG TABLET PO SCH (09:00)
[2017-04-05] MEDS ORDERED: MULTIVITAMIN/IRON/FOLIC ACID 1 TAB TABLET PO SCH (09:00)
[2017-04-05] MEDS ORDERED: ATORVASTATIN CALCIUM 10 MG TABLET PO SCH (09:00)
[2017-04-05] MEDS ORDERED: FERROUS SULFATE 325 MG TABLET PO SCH (09:00)
[2017-04-05] MEDS ORDERED: LISINOPRIL 20 MG TABLET PO SCH (09:00)
--- NOTE | 2017-04-05 10:26 | DS ---
<Adebayo Goodson - Last Filed: 04/05/17 13:10> Description of Stay: This patient was in fact evaluated by our psychiatric automobile sales consultant, and determined safe to be discharged home. At this point, the patient abruptly left against medical advise, pulling out her on her own the IV's and monitoring leads, and simply leaving the unit. I personally directed all of our nurse practitioner hospitalists' care for this patient. Disposition: Against medical advice Condition: Undetermined Complete Home Medications List: Complete Home Medication List: Atorvastatin Calcium [Lipitor] 20 mg PO DAILY 01/26/13 Budesonide/Formoterol Fumarate [Symbicort 160-4.5 Mcg Inhaler] 2 inh IH BID Cyclobenzaprine HCl [Flexeril] 10 mg PO TID 01/26/13 Escitalopram Oxalate [Lexapro] 20 mg PO DAILY 01/26/13 Ferrous Fumarate [Iron] 65 mg PO TID 01/26/13 Levothyroxine Sodium [Synthroid] 100 mcg PO DAILY 01/26/13 Lisinopril [Zestril] 20 mg PO DAILY 01/26/13 Multivit,Calc,Mins/Iron/Folic [Women's Daily Caplet] 1 each PO DAILY 01/26/13 Pioglitazone HCl [Actos] 15 mg PO DAILY 01/26/13 Solifenacin Succinate [Vesicare] 5 mg PO DAILY 01/26/13 metFORMIN HCL [Metformin HCl ER] 1,000 mg PO BID 01/26/13 Albuterol Sulfate [Albuterol Sulfate 2.5 MG/3 ML] 2.5 mg IH QID PRN 04/04/17 Albuterol Sulfate [Ventolin HFA] 2 puff IH Q6H 04/04/17 Calcium Carbonate/Vitamin D3 [Calcium 600 + D3 Softgel] 1 each PO BID 04/04/17 Gabapentin 600 mg PO TID 04/04/17 Ibuprofen [Motrin] 800 mg PO TID PRN 04/04/17 traZODone HCL [Trazodone HCl] 150 mg PO HS 04/04/17 <Jory Crawford - Last Filed: 04/05/17 13:46> Description of Stay: Mrs. Larios is a 56-yr-old WF pt of Dr. Claudia Benjamin with a PMH of: Anemia, Anxiety Disorder, Asthma, Depression, DM II, GERD, HLD, HTN, & Hypothyroidism. Pt appears drowsy from an apparent overdose on narcotics and therefore, history was obtained from family members ( 2 sons- Mikel & Oscar and Spouse- Bertram). Bertram states that pt's brother called him to inform that she had called and expressed suicidal thoughts. Apparently pt stated to his brother that "she was ready to meet Bill." Spouse went home to check on her and found her speech to be slurry and also noticed that 'his bottle of Vicodin tablets were all gone.' He states that there had been roughly 20 pills. They called the EMS and she was brought to the [facility] ER. Pt denies being suicidal, but states that she took the pills as she hurts all over. Sons admit that the pt has an addiction problem to narcotics and she will take her own including her 's medication. They report that she is always sleeping during the day. They have advised the Father to store his narcotic medications away from her but he declines. Bertram says that he cannot read, and therefore relies on her to administer him his medications. Bertram states that pt has been furious and upset since Wednesday over not being able to take a picture with their grandson during graduation. They report that pt has had prior suicide attempt with an intentional overdose medication several months ago. Pt was hospitalized in 10/17/16 for intentional drug overdose on vicodin 10/325's, flexeril & Gabapentin. She was evaluated by Psychiatry (Dr. Means). At the ED today, her urine toxicology screen was positive for opiates and she was in an obtunded state. She received 1 dose of Narcan and became more alert and begun talking. V.S remained stable and was able to maintain her airway. She will be admitted under observation status for supportive cares and for psychiatry evaluation in am. pt was stable overnight and maintained her airway with no need for supplemental oxygen. gag reflex present this am. Patient was seen this am (04/05/17) by Zonia Presley from psychiatry who informed me personally that patient was not a danger to herself or other and was safe for discharge. At which point, the patient pulled out her own iv and pulled off her tele leads and left the hospital AMA after signing the AMA form. Procedures Performed: none Discharge Disposition: AMA
--- NOTE | 2017-04-05 10:43 | PN ---
Subjective - Date and Time Seen Date: 04/05/17 Time: 10:10 Subjective Narrative: "I have just had it with all the drama and crap I have to put up with. I am tired of being in pain and nobody will prescribe me Vicodin. My sister and both get Vicodin, why can't I?" Objective Objective Narrative: Patient seen as a psychiatry consult following intentional overdose. States that she was angry with family members and states that she has alot of pain which is not controlled. States that she is no longer suicidal. Denies any depression, blames others for overdose. Informed her that Dr. Lopez has discharged her from our practice due to +drug screen for opioids when she is not prescribed any. She states that she has pain and no one will prescribe her any Vicodin for her pain. Discussed proper use of medications. Discussed other pain control options. Discussed the dangers of misuse and addiction. Patient denies abusing or being addicted to opioids. Informed her that by taking other's prescribed medications, she is misusing opioids. Strongly encouraged her to set up an appointment with a counselor and a new psychiatry provider. Numbers given for self referral. Numbers also given for ADDS and nearest opioid dependency treatment providers. Patient denies need and refuses to talk. - Review of Systems Generalized/Overall Review: Reports: No Symptoms Reported - Vitals Vitals: Last Vital Signs Temp 36.8 C 04/05/17 06:15 Pulse 79 04/05/17 09:00 Resp 12 04/05/17 06:15 BP 124/76 04/05/17 08:04 Pulse Ox 100 04/05/17 06:15 - Abnormal Lab Findings Abnormal Lab Findings: Abnormal Lab Results 04/05/17 Range/Units 07:05 Sodium 145 H (132-142) mmol/L Plasma Sodium 145 H (130-142) mmol/L Chloride 109 H (97-106) mmol/L - Exam Constitutional: Present: Alert, Oriented x3, No distress, Obese Appearance: Present: impaired insight Eye contact: Present: avoids eye contact Thoughts: Present: normal thought pattern, normal mood /affect Assessment/Plan Plan Narrative: Is cleared by psychiatry for discharge, is not an immediate threat to her safety or the safety of others. Hospitalist aware.
[2017-04-05] MEDS ORDERED: ROSUVASTATIN CALCIUM 10 MG TABLET PO SCH (21:00)
== END 2017-04-05 10:22 | disposition left against medical advice (07) ==
LOC: ER 16:50 → MS 19:53 → SCU 19:53 → UNDOADMOB 19:53
PROVIDERS: ADMIT Nurse Practitioner Critical Care Medicine; ATTEND Allergy & Immunology
DX: T40.2X2A Poisoning by other opioids, intentional self-harm, initial encounter (principal); R53.83 Other fatigue; Y92.009 Unspecified place in unspecified non-institutional (private) residence as the place of occurrence of the external cause; F41.8 Other specified anxiety disorders; E11.9 Type 2 diabetes mellitus without complications; E03.9 Hypothyroidism, unspecified; D64.9 Anemia, unspecified; K21.9 Gastro-esophageal reflux disease without esophagitis; E78.5 Hyperlipidemia, unspecified; I10 Essential (primary) hypertension
CPT/HCPCS: 36415; 51701; 80048; 80053; 80307; 81001; 84443; 85007; 85025; 93005; 96374; 99285; G0378; G0480; G0481

== ENCOUNTER 2017-04-06 11:38 | Emergency (ER) | payer OTHER ==
--- OUTSIDE RECORDS SUMMARY | 2017-04-06 12:21 | XMS REPORT | Continuity of Care Document ---
:1960 Author Organization [facility] ([facility]) Address [address] [place] [address] Phone [phone] Care Team Providers Name Role Phone Claudia Benjamin Primary Care Provider [phone] Source Comments This disclosure is being made pursuant to the Care Everywhere program, applicable federal and state laws, and may not contain all informaitonavailable regarding this patient.[facility] ([facility]) Active Allergies and Adverse Reactions [...]
[2017-04-06 12:43] LABS: Hematocrit 32.3 % (37.0-47.0); Hemoglobin 10.4 gm/dL (12.5-16.0); Mean Cell Volume 89.2 fl (78-100); Mean Corpuscular Hemoglobin 28.7 pg (27-31); Mean Corpuscular Hgb Conc 32.2 g/dl (32-36); Mean Platelet Volume 10.4 fl (6.0-9.5); Neutrophil # 4.3 K/mm3 (1.3-6.0); Neutrophil % 71.8 % (42-75.0); Platelet Count 176 K/mm3 (150-450); Red Blood Count 3.62 M/mm3 (4.2-5.4); Red Cell Distribution Width 13.6 % (11.5-14.0); White Blood Count 5.9 K/mm3 (4.0-10.5)
--- NOTE | 2017-04-06 12:44 | ERNOTE ---
Psychological HPI - General Chief Complaint: Psychiatric Problem Source: Reports: patient Exam Limitations: Reports: no limitations - Immun/Allergies/Home Medications Allergies/Adverse Reactions: Allergies No Known Allergies Allergy (Verified 04/06/17 12:33) Home Medications: HOME MEDICATIONS Atorvastatin Calcium [Lipitor] 20 mg PO DAILY 01/26/13 [Last Taken Unknown] Budesonide/Formoterol Fumarate [Symbicort 160-4.5 Mcg Inhaler] 2 inh IH BID [Last Taken Unknown] Cyclobenzaprine HCl [Flexeril] 10 mg PO TID 01/26/13 [Last Taken Unknown] Escitalopram Oxalate [Lexapro] 20 mg PO DAILY 01/26/13 [Last Taken Unknown] Ferrous Fumarate [Iron] 65 mg PO TID 01/26/13 [Last Taken Unknown] Levothyroxine Sodium [Synthroid] 100 mcg PO DAILY 01/26/13 [Last Taken Unknown] Lisinopril [Zestril] 20 mg PO DAILY 01/26/13 [Last Taken Unknown] Multivit,Calc,Mins/Iron/Folic [Women's Daily Caplet] 1 each PO DAILY 01/26/13 [ Last Taken Unknown] Pioglitazone HCl [Actos] 15 mg PO DAILY 01/26/13 [Last Taken Unknown] Solifenacin Succinate [Vesicare] 5 mg PO DAILY 01/26/13 [Last Taken Unknown] metFORMIN HCL [Metformin HCl ER] 1,000 mg PO BID 01/26/13 [Last Taken Unknown] Albuterol Sulfate [Albuterol Sulfate 2.5 MG/3 ML] 2.5 mg IH QID PRN 04/04/17 [ Last Taken Unknown] Albuterol Sulfate [Ventolin HFA] 2 puff IH Q6H 04/04/17 [Last Taken Unknown] Calcium Carbonate/Vitamin D3 [Calcium 600 + D3 Softgel] 1 each PO BID 04/04/17 [ Last Taken Unknown] Gabapentin 600 mg PO TID 04/04/17 [Last Taken Unknown] Ibuprofen [Motrin] 800 mg PO TID PRN 04/04/17 [Last Taken Unknown] traZODone HCL [Trazodone HCl] 150 mg PO HS 04/04/17 [Last Taken Unknown] - History of Present Illness Narrative: H and has allegedly told family members that she doesn't want to go almost his life anymore and she wants to see Bill. He has had several overdoses in the past and does have access to a variety of medications. Patient is a diabetic and she has access to her hyperglycemia medications. Patient is being frustrated over her husbands illness, and has demonstrated poor coping skills in the past. However at this moment she states she is neither homicidal nor suicidal. Time Seen by Provider: 04/06/17 12:08 Arrived by: Reports: police Onset/duration: Reports: intermittent Intent: Reports: prior thoughts of suicide Mechanism: Reports: overdose - in the past Situational Problems: Reports: spouse Associated Symptoms: Reports: depressed, paranoid, suicidal thoughts Prior Treament: Reports: recently seen, recently hospitalized Review of Systems - Review of Systems Constitutional: Present: See HPI EYE: Present: no symptoms reported ENT: Present: no symptoms reported Respiratory: Present: no symptoms reported Cardiology: Present: no symptoms reported Gastrointestinal/Abdominal: Present: no symptoms reported Genitourinary: Present: no symptoms reported Musculoskeletal: Present: no symptoms reported Skin: Present: no symptoms reported Neurological: Present: no symptoms reported Endocrine: Present: no symptoms reported Hematologic/Lymphatic: Present: no symptoms reported Psych: Present: depressed, emotional problems, other - paranoid - Patient's Past Medical History Patient History - Medical: Anemia, Anxiety, Diabetes Type 2, Depression, Hypothyroidism, Osteoarthritis Patient History - Cardiac/Respiratory: Asthma, Bronchitis Patient History - Cancer: No Hx of Cancer Patient History - Surgical Procedures: Cholecystectomy, Hysterectomy Patient History - Other: None - Family History Father Family History - Medical: Family History - Cardiac/Respiratory: History Unknown Family History - Cancer: History Unknown Mother Family History - Medical: , Diabetes Type 2 Family History - Cardiac/Respiratory: History Unknown Family History - Cancer: History Unknown - Social History Living Situations: spouse Psych History: Hx of Anxiety, Hx of Depression Smoking Status: Former smoker Have you smoked in the past 12 months: No Do you dip or chew tobacco: No Alcohol Use: none Drug Use: none - Immunizations Immunizations Up to Date: Yes Hx Pneumococcal Vaccination: No History of Influenza Vaccine: Yes Physical Exam - Physical Exam General Appearance: Present: wd/wn, alert, no apparent distress Eye Exam: Normal inspection: bilateral, PERRL: bilateral Ears, Nose, Throat: Present: normal ENT inspection, H, normal pharynx Neck: Present: normal inspection, nontender Respiratory: Present: no respiratory distress, normal breath sounds, no accessory muscle use, chest nontender, lungs clear Cardiovascular/Chest: Present: regular rate, rhythm, no murmur, normal peripheral pulses Gastrointestinal/Abdominal: Present: normal bowel sounds, nontender, nondistended, soft, no organomegaly Rectal Exam: Present: deferred Back Exam: Present: normal inspection, normal range of motion Extremity Exam: Present: normal inspection, non-tender, no edema, normal range of motion Neurological Exam: Present: alert, oriented, normal mood/affect, other - while the patient does admit to having depression, she adamantly denies any suicidal thoughts or ideation. Skin Exam: Present: normal color, warm/dry Lymphatic Exam: Present: no adenopathy ED Progress - Results and Orders Patient's Lab Results:: I have reviewed the patient's lab results. - Vital Signs Patient's Vital Signs:: I have reviewed the patient's vital signs. Vital Signs: Vital Signs 04/06/17 11:41 Temperature 36.5 C Pulse Rate 82 Respiratory 16 Rate Blood Pressure 138/95 O2 Sat by Pulse 96 Oximetry - Progress/Reassessment Chief Complaint: Psychiatric Problem Plan - Plan Plan: Patient was In the ER for approximately 4 hours, all of our potential suicide precaution lab work was undertaken and all found to be negative. Patient has denied for the entirety of the time here that she was suicidal, however she understands that her children and stepchildren were only concerned for her well- being. I discussed her case with Judge Barros and she will be discharged home and stands that she needs to find a counselor for ongoing help. Patient is discharged in stable condition. Departure Clinical Impression: Anxiety and depression - Departure Disposition: Home self-care Condition: Good Instructions: Dysphoria Referrals: Claudia Benjamin MD [Primary Care Provider] -
[2017-04-06 13:03] LABS: Urine Bilirubin Negative (NEGATIVE); Urine Blood Negative /ul (NEGATIVE); Urine Ketone Negative (NEGATIVE); Urine Nitrite Negative (NEGATIVE); Urine Protein Negative (NEGATIVE); Urine Urobilinogen Normal (NORMAL)
[2017-04-06 13:05] LABS: ALT 20 U/L (19-67); AST 15 U/L (0-48); Albumin * 3.5 gm/dl (3.4-5.0); Alkaline Phosphatase * 68 U/L (50-170); Anion Gap 13.8 mmol/L (6.8-13.8); BUN/Creatinine Ratio 10.5 (9.0-21.6); Bilirubin, Total 0.2 mg/dL (0.0-1.1); Blood Urea Nitrogen 10 mg/dL (3-23); Ca. Corrected For Albumin 9.3 mg/dL (8.4-10.2); Calcium * 9.2 mg/dL (7.9-10.9); Chloride 107 mmol/L (97-106); Glucose * 121 mg/dL (70-110); Potassium 3.8 mmol/L (3.4-4.6); Salicylate Less than 2.8 mg/dL (2.8-20.0); Sodium 145 mmol/L (132-142); TSH * 1.789 uIU/mL (0.358-3.74)
[2017-04-06 13:14] LABS: Urine Appearance Clear; Urine Bacteria None Seen; Urine Color Yellow; Urine RBC None Seen /hpf (0-5); Urine WBC None Seen /hpf (0-5)
[2017-04-06 13:16] LABS: Cocaine Ur Negative (NEGATIVE); Urine Barbiturate Negative (NEGATIVE); Urine Benzodiazepines Negative (NEGATIVE); Urine Opiates Positive (NEGATIVE); Urine PCP Negative (NEGATIVE); Urine THC Negative (NEGATIVE)
[2017-04-06 16:04] VITALS: BP 130/82
== END 2017-04-06 16:04 | disposition home or self-care (01) ==
LOC: ER 11:38
DX: F41.9 Anxiety disorder, unspecified (principal); F32.9 Major depressive disorder, single episode, unspecified; E11.9 Type 2 diabetes mellitus without complications; E03.9 Hypothyroidism, unspecified; D64.9 Anemia, unspecified; E78.5 Hyperlipidemia, unspecified; J45.909 Unspecified asthma, uncomplicated; Z87.891 Personal history of nicotine dependence
CPT/HCPCS: 36415; 80053; 80307; 81001; 84443; 85025; 99284; G0480; G0481